=== PATIENT | male | born 1940 | race Caucasian/White ===

== ENCOUNTER → 2021-03-23 | Outpatient (CLI) | payer MEDICARE, MEDICAID ==
--- NOTE | 2021-03-24 10:30 | REP ---
INDICATION: DYSPHAGIA. COMPARISON: NONE TECHNIQUE: The procedure was performed under the direct supervision of . The procedure was performed with Vee Hernandez from speech pathology present. 5 CC aliquots of thin, nectar, pudding, mixed fruit, soft and solid consistency barium was administered. 2.6 minutes of fluoroscopy time was utilized for this procedure. FINDINGS: With thin and nectar consistency barium there is laryngeal penetration. IMPRESSION: With thin and nectar consistency barium there is laryngeal penetration. RECOMMENDATION: A detailed report of this examination will be provided by speech pathology. IMPRESSION: With thin and nectar consistency barium there is laryngeal penetration. A detailed report of this examination will be provided by speech pathology. <Electronically signed by Shaji Bustillo > 03/23/21 [id number] <Electronically signed by Hernandez Reid > 03/24/21 1020
== END ==
LOC: M ST 13:37
PROVIDERS: ATTEND Internal Medicine
DX: R13.10 Dysphagia, unspecified (principal)

== ENCOUNTER → 2021-04-30 | Outpatient (CLI) | payer MEDICARE, MEDICAID ==
[~2021-04-30] MED LIST: CASO50TA5 PO
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
== END ==
LOC: M ONCR 09:46
PROVIDERS: ATTEND General Practice
DX: C61 Malignant neoplasm of prostate (principal); E11.9 Type 2 diabetes mellitus without complications; I12.9 Hypertensive chronic kidney disease with stage 1 through stage 4 chronic kidney disease, or unspecified chronic kidney disease; I50.9 Heart failure, unspecified; I69.954 Hemiplegia and hemiparesis following unspecified cerebrovascular disease affecting left non-dominant side; J44.9 Chronic obstructive pulmonary disease, unspecified; K21.9 Gastro-esophageal reflux disease without esophagitis; Z98.61 Coronary angioplasty status

== ENCOUNTER 2021-05-24 14:01 | Outpatient (RCR) | payer MEDICARE, MEDICAID | END 2021-05-27 | LOC: M ONCR 14:01 | PROVIDERS: ATTEND General Practice | DX: C61 Malignant neoplasm of prostate (principal) ==

== ENCOUNTER 2021-06-25 07:33 | Outpatient (RCR) | payer MEDICARE, MEDICAID ==
--- NOTE | 2021-06-08 07:56 | RADENCPD ---
Date/Time of Encounter Date of Encounter: Jun 08, 2021 Time of Encounter: 07:55 Encounter Lupron 22.5 mg given by RN. Indication: High risk prostate cancer. Plan: 3 month trial of ADT, if well tolerated, then will aim for 18 month course. KAYODE GRAY MD Jun 08, 2021 07:56
[~2021-06-25 07:33] MED LIST changes: +LEUPROLIDE 22.5MG KIT (LUPRON DEPOT) (FOR ONCOLOGY) IM ONE; +UNRESOLVED CLARIFICATION ENTRY XX SCH
== END 2021-06-27 ==
LOC: M ONCR 07:33
PROVIDERS: ATTEND General Practice
DX: C61 Malignant neoplasm of prostate (principal)
CPT/HCPCS: 77336; 77385; 96372; J9217

== ENCOUNTER 2021-07-14 07:41 | Outpatient (RCR) | payer MEDICARE, MEDICAID ==
[2021-07-12 09:32] LABS: APPEARANCE, URINE TURBID (CLEAR); BACTERIA, URINE AUTO 2+ (NEGATIVE); BILIRUBIN, URINE AUTO NEGATIVE (NEGATIVE); BLOOD, URINE BLOOD 3+ (NEGATIVE); COLOR, URINE AMBER (YELLOW); GLUCOSE, URINE (UA) AUTO 1+ mg/dL (NEGATIVE); KETONE, URINE AUTO NEGATIVE (NEGATIVE); LEUKOCYTE ESTERASE, URINE AUTO 2+ (NEGATIVE); NITRITE, URINE AUTO POSITIVE (NEGATIVE); PROTEIN, URINE AUTO 3+ mg/dL (NEGATIVE); RBC, URINE AUTO TNTC /HPF (0-3); SPECIFIC GRAVITY URINE AUTO 1.029 (1.002-1.035); SQUAMOUS EPITHELIAL CELL UR AU 0 /HPF (0-6); WBC, URINE AUTO TNTC /HPF (0-3)
[~2021-07-14 07:41] MED LIST changes: -LEUPROLIDE 22.5MG KIT (LUPRON DEPOT) (FOR ONCOLOGY) IM ONE; -UNRESOLVED CLARIFICATION ENTRY XX SCH
== END 2021-07-27 ==
LOC: M ONCR 07:41
PROVIDERS: ATTEND General Practice
DX: C61 Malignant neoplasm of prostate (principal); Z79.899 Other long term (current) drug therapy

== ENCOUNTER → 2021-09-24 | Outpatient (CLI) | payer MEDICARE, MEDICAID ==
[~2021-09-24] MED LIST changes: +BARIUM SULFATE 700 MG TABLET (E-Z-DISK) As Ordered ONE; +E-Z-PAQUE 96% w/w SUSP 176GM BTL As Ordered ONE; +LEUPROLIDE 22.5MG KIT (LUPRON DEPOT) (FOR ONCOLOGY) IM ONE; +VARIBAR NECTAR 40% w/v 240ML SUSP BTL As Ordered ONE; +VARIBAR PUDDING 40% w/v 230ML TUBE As Ordered ONE
[2021-09-24 11:48] LABS: PROSTATIC SPECIFIC AG MONITOR 0.05 NG/ML (< 4.00)
== END ==
LOC: M ONCR 10:13
PROVIDERS: ATTEND General Practice
DX: C61 Malignant neoplasm of prostate (principal); J44.9 Chronic obstructive pulmonary disease, unspecified; I10 Essential (primary) hypertension; Z92.3 Personal history of irradiation; Z88.5 Allergy status to narcotic agent; Z79.899 Other long term (current) drug therapy
CPT/HCPCS: 36415; 84153; 84403; G0463